=== PATIENT | male | born 1965 | race Caucasian/White ===

== ENCOUNTER 2023-02-16 06:14 | Day surgery (SDC) | payer OTHER, SELFPAY ==
[2023-02-14 15:11] VITALS: BMI 24.4
[2023-02-16] VITALS (9 sets, daily range): BP systolic 92–142; BP diastolic 57–88; PULSE 56–81; RESP 12–18; TEMP 36–36.2; O2SAT 90–97; BMI 24.4
--- NOTE | 2023-02-16 07:15 | PM.PREOP ---
Pre-operative Note COVID-19 Criteria for continued procedure: Expected advancement of disease process, Possibility delay results in more complex future surgery or treatment, Continuing or worsening of significant or severe pain, Delay expected to result in less-positive ultimate med/surg outcome and Non-surgical alternatives not available or appropriate per current SOC Interval Note History & Physical reviewed/Exam performed by Physician: Yes Changes to H&P: No
[2023-02-16] MEDS: ACETAMINOPHEN IV 1,000 MG/100 ML VIAL 400 MG IV (07:33)
[2023-02-16] MEDS: LACTATED RINGERS 1,000 ML 21 ML IV (07:33)
[2023-02-16] MEDS: CEFAZOLIN 2 GM/100 ML PREMIX 100 ML IV (07:48)
--- NOTE | 2023-02-16 08:17 | SUR.OPER ---
Supine on padded OR bed, head on pillow, arms secured on padded arm boards at <90 degrees abduction, legs uncrossed, safety belt at thigh, tape over blanket over lower legs.
[2023-02-16] MEDS: BUPIVACAINE LIPOSOME 266 MG/20 ML VIAL INJ (08:27)
[2023-02-16] MEDS: SODIUM CHLORIDE 0.9% FLUSH 20 ML IV (08:30)
[2023-02-16] MEDS: BUPIVACAINE 0.25% (PF) 30 ML, EPINEPHrine 0.15 MG INJ (08:31)
--- NOTE | 2023-02-16 10:43 | P.OP_ITS ---
Operative Date/Time/Diagnoses Date of procedure: 02/16/23 Time of procedure: 10:20 Pre-op diagnosis: Bilateral inguinal hernias Post-op diagnosis: same Procedure & Clinicians Procedure: 1. Bilateral direct inguinal hernia repair with. Same procedure as scheduled: Yes Indications: 1. Bilateral symptomatic inguinal hernias. Surgeon: Sandra Carter Click Yes if Unassisted: Yes Anesthesia Type: General Operative Notes Findings: Normal bilateral inguinal tissue planes down to the level of the external oblique fascia. The inguinal floors were absent with direct inguinal hernias bilaterally. Careful exploration of the proximal cord in the vicinity of the internal ring failed to identify indirect inguinal hernia component. Closure Type: primary Specimen(s): none sent Estimated Blood Loss (mL): 5 Blood products transfused: none Procedure in detail: Patient was positioned in supine was administered general anesthesia. Bilateral repair of direct inguinal hernia with mesh was then undertaken using essentially the same steps and maneuvers bilaterally as follows: 0.25% Marcaine with epinephrine was used to infiltrate the skin layer obliquely over the inguinal canal. Sharp incision was then made through the skin and division of the subcutaneous fat, Martell's fascia down to the level of the external oblique fascia was performed using blunt and cautery dissection. The external oblique fascia was partially attenuated at the level of the internal ring bilaterally. External oblique fascia was then divided parallel to its fibers over the inguinal canal. The cord was then carefully identified, mobilized, and isolated. Ileal inguinal nerve was not observed in either case. The defect within the floor of the inguinal canal was then carefully developed and the superior and inferior edges of the defect for carefully developed using blunt and sharp dissection. The internal oblique and transversalis fascia was then reapproximated to the reflection of the Poupart's ligament using running 2- 0 PDS for anatomic approximation and management of the large indirect bulge rather than for structural reconstruction. Next a 6 in x 3 in flat Bard polypropylene mesh graft was requested. The sheath was tailored and trimmed appropriately to fit beneath the external oblique fascia and spermatic cord. It was secured to the pubic tubercle with 3-0 Prolene. 3-0 Prolene was used where needed along the inferior margin and superiorly to position and secure the mesh without undue folds or wrinkles. Lateral crossing tails were then created and passed laterally. Stellate releasing incisions were made at the level of the internal ring. Next, external oblique fascia was closed using running 2-0 PDS. Martell's fascia layer was reapproximated using the same suture. The skin was then reapproximated using a running subcuticular 4-0 Monocryl. The skin surface was cleaned and dried. Telfa gauze was then trimmed and tailored appropriately to cover the incision line. Over this medium transparent Telfa were applied. The patient was then awakened transferred to [facility] then transported to recovery in stable condition. Complications: none Post-operative Condition: stable Disposition: PACU Plan for aftercare: Discharge home.
[2023-02-16] MEDS: OXYCODONE IR 5 MG TABLET PO (10:57)
--- NOTE | 2023-02-16 11:23 | SUR.PHASEII ---
pt sitting up drinking coffee and eating crackers. Pt states pain is a three and he is able to tolerate it.
--- NOTE | 2023-02-16 11:28 | SUR.PHASEII ---
pt sitting up and drinking coffee. No distress noted.
== END 2023-02-16 12:00 | disposition home or self-care (01) ==
PROVIDERS: Referring Provider Specialist; Visit Provider Specialist
PROC: (CPT 49505; principal; 2023-02-16 07:45)
DX: K40.20 Bilateral inguinal hernia, without obstruction or gangrene, not specified as recurrent (principal)
CPT/HCPCS: 49505; 85610; C1781; C9290; J0131; J0171; J0690; J1100; J2250; J2405; J2704; J3010

== ENCOUNTER → 2023-03-15 14:08 | Outpatient (CLI) | payer OTHER, SELFPAY ==
[2023-03-15 18:33] LABS: Prostate Specific Antigen 2.65 ng/mL (0.10-4.00)
== END ==
PROVIDERS: Referring Provider Specialist; Visit Provider Specialist
DX: N13.8 Other obstructive and reflux uropathy (principal); N40.1 Benign prostatic hyperplasia with lower urinary tract symptoms
CPT/HCPCS: 36415; 84153